=== PATIENT | female | born 1995 | race Hispanic/Latino ===

== ENCOUNTER 2023-06-01 09:09 | Emergency (ER) | payer SELFPAY ==
[2023-06-01] VITALS (12 sets, daily range): BP systolic 95–122; BP diastolic 57–75
[~2023-06-01] VITALS: Ht 162.6 cm; Wt 79.0 kg
[~2023-06-01 09:09] MED LIST: AUGMENTIN500TAB PO; IBUPROFEN600 MG PO; LORYNA1 TAB PO; ONDANSETRON4 MG PO; PRENATA3 PO; TAM75CAP PO; TRAMADOL HYDROC50 M1 PO; ZOFRAN4 MG/TAB PO
[2023-06-01 09:40] LABS: BASO% 0.4 % (0-3); EOS% 1.8 % (0-8); HEMOGLOBIN 11.7 g/dl (12.0-16.0); IMMATURE GRANULOCYTES 0.4 % (0.0-5.0); LYMPH% 20.5 % (15-41); MEAN CELL VOLUME 87.8 fL CALC (80.0-100.0); MEAN CORPUSCULAR HGB 28.5 pG CALC (26.0-32.0); MEAN CORPUSCULAR HGB CONC 32.5 g/dL CAL (32.0-36.0); MONO% 4.8 % (2-13); NEUT# 6.04 thou/uL (2.00-7.15); NEUT% 72.1 % (42-76); RED BLOOD COUNT 4.1 mill/uL (4.20-5.60); RED CELL DISTRI WIDTH 13.2 % (11.5-15.5)
[2023-06-01 09:45] LABS: URINE BLOOD DIPSTICK Large (NEGATIVE); URINE GLUCOSE - DIPSTICK Negative (NEGATIVE); URINE KETONE Trace mg/dL (NEGATIVE); URINE LEUK ESTERASE Negative (NEGATIVE); URINE NITRITE - DIPSTICK Negative (Negative); URINE PROTEIN - DIPSTICK 100 mg/dL (NEG-TRACE); URINE SPECIFIC GRAVITY 1.025
[2023-06-01 09:47] LABS: URINE COLOR Bloody
[2023-06-01 09:49] LABS: URINE RBC >100 RBC/hpf (0-5)
[2023-06-01 09:50] LABS: URINE SQUAMOUS EPITHELIAL CELL MODERATE EPI/hpf (0-FEW)
[2023-06-01 09:58] LABS: URINE BACTERIA FEW hpf
[2023-06-01 10:26] LABS: ALBUMIN 3.6 g/dL (3.2-5.0); ALKALINE PHOSPHATASE 51 u/l (38-126); ANION GAP 9 (6-22 (CALC)); BUN 9 mg/dL (7-17); BUN/CREATININE RATIO 15 (12-20 (CALC)); CARBON DIOXIDE 28 mmol/l (22-30); CHLORIDE 107 mmol/l (95-108); CREATININE 0.6 mg/dL (0.5-1.0); GFR FOR AFR.AMER. > 60 ML/MIN (>=60 (CALC)); GFR OTHER RACES > 60 ML/MIN (>=60 (CALC)); LIPASE 43 u/l (23-300); SGOT/AST 48 u/l (14-36); SODIUM 140 mmol/l (137-146); TOTAL PROTEIN 6.4 g/dL (6.3-8.2)
[2023-06-01 10:28] LABS: BILIRUBIN, TOTAL 0.6 mg/dL (0.02-1.3)
[2023-06-01] MEDS ORDERED: ZOFRAN4 MG/TAB PO (11:51)
[2023-06-01] MEDS ORDERED: HYDROCO/APAP1 TA9 PO (11:51)
== END 2023-06-01 12:18 | disposition home or self-care (01) | DRG 446 ==
LOC: ED 09:09
PROVIDERS: Family Medicine
DX: K80.20 Calculus of gallbladder without cholecystitis without obstruction (principal)

== ENCOUNTER 2024-03-23 12:15 | Emergency (ER) | payer OTHER ==
[~2024-03-23] VITALS: Ht 162.6 cm; Wt 105.2 kg
[~2024-03-23 12:15] MED LIST changes: +HYDROCO/APAP1 TA9 PO
[2024-03-23 12:52] VITALS: BP 118/73
[2024-03-23] MEDS ORDERED: PRENATA4 PO (12:57)
[2024-03-23 13:00] VITALS: BP 117/72
[2024-03-23 13:06] LABS: URINE BILIRUBIN - DIPSTICK Negative (NEGATIVE); URINE BLOOD DIPSTICK Large (NEGATIVE); URINE GLUCOSE - DIPSTICK Negative (NEGATIVE); URINE KETONE Trace mg/dL (NEGATIVE); URINE NITRITE - DIPSTICK Negative (Negative); URINE PROTEIN - DIPSTICK >=300 mg/dL (NEG-TRACE); URINE SPECIFIC GRAVITY >=1.030; URINE UROBILINOGEN - DIPSTICK 0.2 E.U./dL (0.2)
[2024-03-23 13:07] LABS: URINE COLOR Yellow; URINE LEUK ESTERASE Small (NEGATIVE); URINE RBC >100 RBC/hpf (0-5)
[2024-03-23 13:08] LABS: URINE BACTERIA MODERATE hpf; URINE WBC 20-50 WBC/hpf (0-5)
[2024-03-23 13:15] VITALS: BP 116/74
[2024-03-23] MEDS ORDERED: AMOX/K CLAV875 M1 PO (13:24)
[2024-03-23 13:36] VITALS: BP 116/74
== END 2024-03-23 13:40 | disposition home or self-care (01) ==
LOC: ED 12:15
PROVIDERS: Family Medicine
DX: O23.43 Unspecified infection of urinary tract in pregnancy, third trimester (principal); N39.0 Urinary tract infection, site not specified; Z3A.37 37 weeks gestation of pregnancy; Z87.440 Personal history of urinary (tract) infections